=== PATIENT | female | born 1975 | race Asian ===

== ENCOUNTER 2020-05-18 12:12 | Emergency (ER) | payer MEDICARE ==
[~2020-05-18] VITALS: Ht 154.9 cm; Wt 50.9 kg
[2020-05-18 12:20] VITALS: TEMP 98
[2020-05-18 12:53] LABS: BASO % 0.6 % (0.0-2.0); EOS % 0.6 % (0-4.0); GRAN # 5.8 (1.4-6.5); GRAN % 80.2 % (42.2-75.2); HEMATOCRIT 41.9 % (37.0-47.0); HEMOGLOBIN 13.8 g/dl (12.5-16.0); LYMPH # 0.9 (1.2-3.4); LYMPH % 12.3 % (20.0-51.0); MEAN CELL VOLUME 87 fl (80.0-100.0); MEAN CORPUSCULAR HEMOGLOBIN 29 pg (27.0-31.0); MEAN CORPUSCULAR HGB CONC 33 g/dl (33.0-37.0); MEAN PLATELET VOLUME 10.5 fl (7.4-10.4); MONO # 0.5 (0.1-0.6); MONO % 6.2 % (1.7-9.3); PLATELET COUNT 280 K/mm3 (130-400); RED BLOOD COUNT 4.83 M/mm3 (4.10-5.30); REDCELL DISTRIBUTION WIDTH-CV 11.4 % (11.5-14.5)
[2020-05-18] MEDS ORDERED: PROGRAF 1MG1 MG PO (12:55)
[2020-05-18] MEDS ORDERED: MYFORTIC180 MG PO (12:55)
[2020-05-18] MEDS ORDERED: SENSIPAR30 MG PO (12:56)
[2020-05-18] MEDS ORDERED: BIOTIN10000 MC1 PO (12:56)
[2020-05-18] MEDS ORDERED: GALZIN25 MG PO (12:57)
[2020-05-18] MEDS ORDERED: PROBIOTIC 2 BI1 EACH PO (12:57)
[2020-05-18 13:15] LABS: BILIRUBIN,TOTAL 0.7 mg/dL (0.0-1.0); CALCIUM 10.5 mg/dL (8.4-10.2); CREATININE, serum 0.99 (0.52-1.25); POTASSIUM 4.6 mmol/L (3.4-5.0); TOTAL PROTEIN 8.9 gm/dL (6.4-8.2)
[2020-05-18 13:49] VITALS: BP 130/80; PULSE 82
[2020-05-18] MEDS ORDERED: ZOFRAN ODT4 MG PO (13:56)
== END 2020-05-18 13:58 | disposition home or self-care (01) ==
LOC: COL.ER 12:12
PROVIDERS: Family Medicine
DX: S06.0X0A Concussion without loss of consciousness, initial encounter (principal); W01.198A Fall on same level from slipping, tripping and stumbling with subsequent striking against other object, initial encounter
CPT/HCPCS: J2405; J7120

== ENCOUNTER → 2021-12-01 | Emergency (ER) | payer OTHER ==
[~2021-12-01] VITALS: Ht 154.9 cm; Wt 54.5 kg
[~2021-12-01] MED LIST: BIOTIN10000 MC1 PO; CIPRO 500MG TA500 MG PO; GALZIN25 MG PO; MYFORTIC180 MG PO; OMNICEF 300MG300 MG PO; PROBIOTIC 2 BI1 EACH PO; PROGRAF 1MG1 MG PO; SENSIPAR30 MG PO; ZOFRAN ODT4 MG PO
[2021-12-01 20:22] VITALS: BP 136/83; PULSE 92; TEMP 98.3
[2021-12-01 21:08] LABS: COLLECTION METHOD CLEAN CATCH
[2021-12-01 21:19] LABS: BASO % 0.3 % (0.0-2.0); EOS % 0.1 % (0.0-4.0); GRAN # 9.6 K/mm3 (1.4-6.5); GRAN % 85.9 % (42.2-75.2); HEMOGLOBIN 11.7 g/dl (12.5-16.0); LYMPH # 0.5 K/mm3 (1.2-3.4); MEAN CELL VOLUME 87 fl (80.0-100.0); MEAN CORPUSCULAR HEMOGLOBIN 28 pg (27-31); MEAN CORPUSCULAR HGB CONC 32 g/dl (33.0-37.0); MEAN PLATELET VOLUME 10.4 fl (7.4-10.4); MONO % 9.3 % (1.7-9.3); PLATELET COUNT 224 K/mm3 (130-400); RED BLOOD COUNT 4.14 M/mm3 (4.10-5.30); REDCELL DISTRIBUTION WIDTH-CV 12.9 % (11.5-14.5)
[2021-12-01 21:20] LABS: HEMATOCRIT 36.1 % (37.0-47.0)
[2021-12-01 21:26] LABS: MUCOUS Present (NOT PRESENT); PH 5 (5-8); URINE APPEARANCE Cloudy (CLEAR/HAZY); URINE BACTERIA Occasional /hpf (NONE SEEN); URINE BILIRUBIN Negative (NEGATIVE); URINE BLOOD 2+ (NEGATIVE); URINE COLOR Yellow (YELLOW); URINE GLUCOSE Negative (NEGATIVE); URINE KETONE Trace (NEGATIVE); URINE LEUKOCYTE ESTERASE 3+ (NEGATIVE); URINE NITRATE Negative (NEGATIVE); URINE PROTEIN(semi-quant) 1+ (NEGATIVE); URINE UROBILINOGEN Negative (NEGATIVE)
[2021-12-01 21:32] LABS: ALBUMIN 3.8 gm/dL (3.5-5.0); BILIRUBIN,TOTAL 0.8 mg/dL (0.2-1.2); C-REACTIVE PROTEIN 7.15 mg/dL (0.00-0.50); CALCIUM 9.1 mg/dL (8.4-10.2); CREATININE, serum 1.26 mg/dL (0.57-1.11); POTASSIUM 3.9 mmol/L (3.5-4.5); TOTAL PROTEIN 7.8 gm/dL (6.2-8.1)
== END ==
LOC: COL.ER 20:13
PROVIDERS: Family Medicine
DX: N39.0 Urinary tract infection, site not specified (principal); R21 Rash and other nonspecific skin eruption
CPT/HCPCS: J0696; J1200; J2405; J7120